=== PATIENT | female | born 1955 | race Caucasian/White ===

== ENCOUNTER 2022-12-04 10:06 | Observation (INO) ==
--- NOTE | 2022-11-18 13:47 | PAT Medication Instructions ---
Medication Instructions Date of Service November 18, 2022 Home Medications ascorbic acid (vitamin C) 1,000 mg tablet (Vitamin C) 1 g PO HS cholecalciferol (vitamin D3) 25 mcg (1,000 unit) tablet (Vitamin D3) 25 mcg PO HS ibuprofen 800 mg tablet 800 mg PO BID levothyroxine 150 mcg capsule 150 mcg PO QAM lisinopril 20 mg tablet 40 mg PO QAM affjnqts-dfi-mdkr-FA-Ca carb-vit K 18 mg iron-400 mcg-500 mg tablet (One-A-Day Womens Formula) 1 tab PO HS sertraline 25 mg tablet 25 mg PO HS simvastatin 20 mg tablet 20 mg PO QPM solifenacin 10 mg tablet 10 mg PO QAM ASK your surgeon for instructions ibuprofen 800 mg tablet 800 mg PO BID DO NOT take the morning of surgery lisinopril 20 mg tablet 40 mg PO QAM solifenacin 10 mg tablet 10 mg PO QAM Take morning of surgery With a small sip of water, OTHERWISE NOTHING TO EAT OR DRINK AFTER MIDNIGHT: levothyroxine 150 mcg capsule 150 mcg PO QAM Take evening before surgery ascorbic acid (vitamin C) 1,000 mg tablet (Vitamin C) 1 g PO HS cholecalciferol (vitamin D3) 25 mcg (1,000 unit) tablet (Vitamin D3) 25 mcg PO HS zovivtww-vfe-uqee-FA-Ca carb-vit K 18 mg iron-400 mcg-500 mg tablet (One-A-Day Womens Formula) 1 tab PO HS sertraline 25 mg tablet 25 mg PO HS simvastatin 20 mg tablet 20 mg PO QPM Other Notes If you have any questions please call us at [phone] or [phone] or [phone] or [phone]
--- NOTE | 2022-11-19 09:44 | Anesthesiology Consultation ---
Date of Service November 19, 2022 Assessment & Plan (1) Encounter for pre-operative examination: - bladder stimulator: nonfunctional x 10 yrs. - Outpatient joint assessment: Patient is currently scheduled for inpatient pathway. If re-evaluated pending system levels during current pandemic/surgeon requests outpatient pathway, patient is not acceptable candidate for outpatient joint program from anesthesia standpoint. - Case discussed with Dr. Wheeler who advised nothing additional needed from his standpoint, agreed pt not acceptable for outpatient joint. Chart Review Chart Review: Acceptable Risk for Surgery and Patient seen in Pre Admission Testing Teaching & Discussion Pre-Anesthesia Teaching/Discussion Notes: Instructed NPO after midnight before surgery, except medications with 15 cc of water. Medication instructions provided according to the PAT guidelines. History Surgery Operation Date: 12/04/22 11:00 Proposed Procedures p Right Total Knee Arthroplasty - Weston Bazan MD Height/Weight Height: 5 ft 6 in Weight: 127.3 kg Allergies Allergy/AdvReac Type Severity Reaction Status Date / Time nickel Allergy Mild Rash Verified 11/14/22 11:18 codeine AdvReac Intermediate Migraine Verified 11/14/22 11:18 Medications Home Medications Medication Instructions Recorded Confirmed Last Taken ascorbic acid (vitamin C) 1,000 mg 1 g PO HS 11/14/22 11/14/22 Unknown tablet (Vitamin C) cholecalciferol (vitamin D3) 25 25 mcg PO HS 11/14/22 11/14/22 Unknown mcg (1,000 unit) tablet (Vitamin D3) ibuprofen 800 mg tablet 800 mg PO BID 11/14/22 11/14/22 Unknown levothyroxine 150 mcg capsule 150 mcg PO QAM 11/14/22 11/14/22 Unknown lisinopril 20 mg tablet 40 mg PO QAM 11/14/22 11/14/22 Unknown yxnsnbml-vjj-sbdy-FA-Ca carb-vit K 1 tab PO HS 11/14/22 11/14/22 Unknown 18 mg iron-400 mcg-500 mg tablet (One-A-Day Womens Formula) sertraline 25 mg tablet 25 mg PO HS 11/14/22 11/14/22 Unknown simvastatin 20 mg tablet 20 mg PO QPM 11/14/22 11/14/22 Unknown solifenacin 10 mg tablet 10 mg PO QAM 11/14/22 11/14/22 Unknown calcium carb-vitamin D3 ER 600 mg tab PO QPM 11/19/22 Unknown (1,500 mg)-500 unit tablet,ER 24 hr pantoprazole 40 mg tablet,delayed 40 mg PO QAM 11/19/22 11/19/22 Unknown release Additional Notes: Pt reported also taking pantoprazole QAM and calcium QPM. She was advised to continue pantoprazole am day of surgery and can take calcium the evening before surgery. This was also written on provided medication instructions. She verbalized full understanding and agreement, denied questions, concerns or additional medications. Past Medical History Medical History (Updated 11/19/22 @ 10:00 by Hannah Drake PA-C) Depression GERD (gastroesophageal reflux disease) controlled, stable per pt History of breast cancer diagnosed 5yrs ago on left breast--surgery-no limb restriction per pt History of COVID-19 diagnosed 02/2022--mild symptoms, no symptoms now History of kidney stones History of radioactive iodine thyroid ablation Hyperlipidemia Hypertension controlled, stable per pt Hypothyroidism Incontinence urinary Morbid obesity with BMI of 45.0-49.9, adult Overactive bladder bladder stimulator in place but nonfunctional x 10 yrs per pt Sleep apnea CPAP-compliant Patient denies h/o stroke, seizures, heart attack, heart failure, DM, blood clots or blood transfusions. Exercise / Class Metabolic Activity III < 4 Walking/Shop/Light housework (denies chest discomfort or shortness of breath with usual activities) Past Family History Family History Other No family history of adverse response to anesthesia Past Surgical History Surgical History History of arthroscopy of right knee History of bilateral tubal ligation History of bronchoscopy 40yrs ago--had viral pneumonia History of section History of left breast biopsy malignant History of lithotripsy History of lumpectomy of left breast with lymph node removal--per pt NO limb restrictions History of tooth extraction all teeth removed Past Anesthesia History No Hx of Anesthesia Complications and No Family Hx of Anesthesia Complications History of PONV No Hx of Motion Sickness and History of PONV (denies needing scop patch) Social History Smoking Status: Never smoker Do You Dip or Chew Tobacco: No Hx Alcohol Use: Yes alcohol intake frequency: holidays/special occasions only Hx Substance Use: No substance use type: does not use Review of Systems Patient denies chest pain, shortness of breath, dyspnea on exertion, fever, chills, cough, wheezing, or palpitations. Physical Exam Vital Signs Vitals BP 116/74 P 68 TEMP 98 SP02 96% on RA RESP 17 Physical Full cervical extension range of motion without pain TMD 3.5 finger breadths Mallampati Score 2 Dentition: edentulous, full upper and lower dentures Lungs: normal respiratory effort. Clear throughout to auscultation, no adven titious breath sounds Cardiac: regular rate and rhythm, no murmurs noted Carotid arteries: negative bruit bilat Lab Results Anesthesia Preop Results Results Anesthesia Widget: WBC 5.00 K/ul (4.8-10.8) 11/19/22 Hgb 12.1 g/dl (12.0-16.0) 11/19/22 Hct 37.3 % (37.0-47.0) 11/19/22 Plt 196 K/uL (130-400) 11/19/22 Na 138 mmol/L (136-145) 11/19/22 K 4.0 mmol/L (3.5-5.1) 11/19/22 Cl 110 mmol/L (98-107) H 11/19/22 CO2 26 mmol/L (21-32) 11/19/22 BUN 23 mg/dl (6-23) 11/19/22 Creat 0.68 mg/dl (0.6-1.2) 11/19/22 Glucose Level 81 mg/dl (70-99(Fasting)) 11/19/22 PT 10.6 Seconds (9.0-12.0) 11/19/22 PTT 27.3 Seconds (21.0-31.0) 11/19/22 INR 1.0 (0.9-1.1) 11/19/22 Blood Type A Negative 11/19/22 Antibody Screen NEGATIVE 11/19/22 Testing Electrocardiogram Date: 11/19/22 Sinus rhythm with 1st degree AV block, rate 62 bpm Chest X-Ray Date: 11/19/22 No lines and tubes are seen. Cardiomegaly is noted. The lungs are clear. No evidence of pleural effusion or pneumothorax. IMPRESSION: No acute chest disease. COVID-19 Risk Screen Screening Information COVID-19 Screen Date: 11/19/22 Exposure 21 Days Family/Household +COVID Last 21 Days: No Exposure 10 Days Any COVID Exposure Last 10 Days: No Symptoms Last 10 Days Experienced COVID Sx Last 10 Days: No + COVID 0-90 Days COVID + in Last 0-90 Days: No
[~2022-12-04 10:06] MED LIST: ACETAMINOPHEN 500 MG TAB PO SCH; BUPIVACAINE 0.5 % 5 MG/1 ML PF 10ML VIAL ONE; BUPIVACAINE LIPOSOME/PF 266 MG, BUPIVACAINE/EPINEPHRINE 50 ML, SODIUM CHLORIDE 0.9% PF ... INFIL SCH; CeleBREX 200 MG CAP PO SCH; GABAPENTIN 300 MG CAP PO SCH; LR 500ML BOLUS, THEN 15ML/HR IV SCH; LR 60ML/HR IV SCH; METOCLOPRAMIDE HCL 10 MG TABLET PO SCH; ROPIVACAINE 0.5% 5 MG/ML 30 ML VIAL ONE; Scopolamine 1 MG TDSY TD SCH; TRANEXAMIC ACID 1,000 MG **IV Intra-op IV SCH; ceFAZolin 2000MG 2,000 MG/15 ML SYR IV SCH; dexAMETHasone**PF** 10 MG/ML VIAL IV SCH
--- NOTE | 2022-12-04 10:19 | History & Physical Bridge Note ---
Date of Service December 04, 2022 History & Physical Bridge Note I have examined the patient, reviewed the History & Physical and in the interval since the performance of the History & Physical I have noted the following changes of clinical significance: no changes noted
[2022-12-04] MEDS ORDERED: BUPIVACAINE/EPINEPHRINE 0.25% 1:200,000 30 ML VIAL ONE (12:09)
[2022-12-04] MEDS ORDERED: SODIUM CHLORIDE 0.9% PF 50 ML VIAL ONE (12:09)
[2022-12-04] MEDS ORDERED: BUPIVACAINE LIPOSOME 1.3% 266 MG/20 ML VIAL ONE (12:10)
[2022-12-04] MEDS ORDERED: MIDAZOLAM HCL 1 MG/ML 2ML VIAL ONE (12:16)
[2022-12-04] MEDS ORDERED: LIDOCAINE 2% MPF LOCAL 5 ML VIAL ONE (13:29)
[2022-12-04] MEDS ORDERED: DEXAMETHASONE SOD INJ 4 MG/ML VIAL ONE (13:29)
[2022-12-04] MEDS ORDERED: PROPOFOL IV EMULSION 10 MG/ML 20 ML VIAL IV ONE ×3 (13:29→13:42)
[2022-12-04] MEDS ORDERED: ONDANSETRON INJ 2 MG/ML 2 ML VIAL ONE (13:29)
[2022-12-04] MEDS ORDERED: ROPIVACAINE 0.5% 5 MG/ML 30 ML VIAL ONE (13:52)
[2022-12-04] MEDS ORDERED: BUPIVACAINE 0.5 % 5 MG/1 ML PF 10ML VIAL ONE (14:00)
--- NOTE | 2022-12-04 14:43 | Operative Report ---
PG Post Operative Report Pre & Post Diagnosis Operation Date: 12/04/22 12:30 Pre-Op Diagnosis: Right Knee Degenerative Joint Disease Post-Op Diagnosis: Right Knee Degenerative Joint Disease I identified the patient and participated in the time-out.: Yes Procedure Operation Date: 12/04/22 12:30 Actual Procedures p Right Total Knee Arthroplasty(Right) - Weston Bazan MD Surgeon Weston Bazan MD [employer] Hussain Beard PA-C Estimated Blood Loss 10 Findings Consistent with Post-Op Diagnosis Operative findings were advanced right knee tricompartment DJD. She had extensive grade 4 dtqu-il-daby disease of the all 3 compartments. She had osteophytes in all 3 compartments. Chronic ACL deficiency. Moderate-sized joint effusion. Specimens Right knee sent for pathology Anesthesia Type Spinal MAC Complications none Disposition Accompanied Patient To Recovery: No Indications Patient is 67-year-old female has had a long history of bilateral knee pain discomfort describes gotten worse over time patient been to extensive conservative treatment which became less successful over time. X-rays showed advanced bilateral knee DJD. She elected proceed with right total knee arthroplasty. Patient does have an apparent nickel allergy so we use a [employer] zirconium journey 2 total knee arthroplasty system. Description of Procedure Operative implants consist of: 1. [employer] journey 2 size 6 right posterior stabilized femoral component. 2. [employer] journey 2 size 5 right tibial tray. 3. 10 mm posterior stabilized polyethylene insert. 4. 32 x 9 all poly patella. The patient was taken the operating, identified, placed on the operating table supine position protectors were properly padded. IV antibiotics tried by anesthesia team. A spinal anesthetic and adductor canal block had provided holding area. Rodgers catheter was placed in sterile fashion the right Tetrick was then placed in the right lower extremities and prepped and draped in usual sterile fashion. The right leg was elevated exsanguinated with use of an Esmarch and tourniquet placed at 300 mmHg. An anterior approach of the right knee was then performed through a longitudinal incision centered over the patella. Sharp dissection was carried through subcutaneous tissue down the extensor mechanism. Medial parapatellar arthrotomy incision was made. Some subperiosteal dissection was carried out medially. The fat pad was dissected from Neath patella tendon. The lateral patellofemoral ligament was released. Patella subluxated laterally and the knee was flexed. The osteophytes taken off distal femur. The ACL was absent. The PCL was released from distal femur the tibia subluxated anteriorly. The external tibial alignment jig was then placed the interface the tibia and adjusted 8 mm medially. Proximal tibial cut was made remove about a millimeter or 2 of bone from most deficient aspect medial tibial plateau. The tibia was then sized to a size 5. Attention drawn the femur. The distal femur was entered with a sharp drop with intramedullary canal was suction. A right 5 degree valgus cutting guide was placed. Distal femoral cutting block was pinned in place. Distal femoral cut was made to take an additional 2 mm of bone off distal femur. The femur was then sized to a size 6. The AP cutting block was pinned parallel to the epicondylar axis which was 4 degrees of external rotation. The anterior cord 8, anterior chamfer, posterior cut, posterior chamfer, anterior chamfer cut was made. The knee was then flexed. The osteophytes taken off the posterior aspect of the femur. The remnants of the medial lateral menisci were excised. The trial femoral component was placed. The cutting guide for the trochlea device was placed in t he trochlea/intercondylar box was created. The trochlear component was placed. The tibial tray was then pinned in position in maximum external rotation. The drill and stem punch used to create the defect in proximal tibia for the tibial tray. I then trialed the knee and the 10 mm insert fit most appropriately. Attention drawn the patella. The patella was cleaned of all soft tissues. Patella thickness measured 25 mm in thickness was cut down to 15. Was sized to a size 32 patella. The lug holes were drilled for the 32 patella. The lateral osteophytes removed. Patella button was placed. Knee was taken through range of motion and the patella tracked nicely with no thumbs test. Attention drawn to placing permanent components. Trial components were removed. Bone plug was placed in the distal femur limit blood loss. Double batch Palacos G cement was mixed. A [employer]hew size 6 right posterior stabilized femoral component, size 5 tibial tray, 10 mm posterior stabilized polyethylene insert, and a 32 x 9 all Paller patella then cemented in place. Knee was brought out into full extension till cement hardened. Final cement check was then performed. The pericapsular tissues were injected with total 100 cc of combination of 20 cc of Exparel, 30 cc normal saline, 50 cc of quarter percent Marcaine with epinephrine. Patient did receive 1 g tranexamic acid. The tourniquet was then let down for final tourniquet time of 61 minutes. Hemostasis assured use electrocautery through the Vetrimec Closed with combination 1 PDS suture and 1 Vicryl suture in a [id number] f ashion. Extensor mechanism checked found to be intact with subcutaneous tissue then closed with 2 Dexon suture in a buried erupted fashion skin was closed skin emily. Leg was then cleaned and dried and a sterile dressing with Xeroform, 4 fours, sterile cast padding, Francisco bandage were applied. Patient then transferred to the recovery room in stable condition. Patient tolerated procedure well and there were no complications. Hussain Beard, my physician call center assistant, was present for the entire procedure. His assistance was essential and required for appropriate patient positioning, prepping and draping, surgical exposure, performing the technical details of the operation, placement the implants, closure of the wound, and placement of the sterile bandage. I attest to the content of the Intraoperative Record and any orders documented therein. Any exceptions are noted below.
--- NOTE | 2022-12-04 15:02 | Anesthesiology Progress Note ---
Date of Service December 04, 2022 Anesthesia Post Procedure Vital Signs Vital Signs: Temp Pulse Pulse Resp BP Pulse Ox O2 Del Method 12/04/22 14:50 68 18 122/66 100 Room Air 12/04/22 14:40 36 C L 74 16 114/84 100 Oxymask 12/04/22 10:49 37.1 C 76 20 135/96 93 Room Air O2 Flow Rate 12/04/22 14:50 12/04/22 14:40 6 12/04/22 10:49 Transfer of Care Handoff Completed per policy Notes Mental Status: alert / awake / arousable and participated in evaluation Nausea / Vomiting: adequately controlled Pain: adequately controlled Airway Patency, RR, SpO2: stable & adequate BP & HR: stable & adequate Hydration State: stable & adequate Neuraxial Anesthesia: was administered Anesthetic Complications: no major complications apparent and Pt Satisfied with anesthetic care
--- NOTE | 2022-12-04 15:09 | XRay Report ---
TWO VIEWS RIGHT KNEE CLINICAL HISTORY: Postoperative examination. FINDINGS: AP and crosstable lateral portable views of the right knee are obtained. A right knee arthr oplasty is in near anatomic alignment. There has been undersurface remodeling of the patella. No acut e fracture is seen. There are expected postoperative changes around the knee including skin clips, so ft tissue edema, and subcutaneous gas. IMPRESSION: Expected postoperative changes status post right knee arthroplasty. No acute fracture is seen. ACT 112: Negative or not required by law. Electronically signed by: Angel De La Rosa M.D. 12/04/2022 3:07 PM
[2022-12-04] MEDS ORDERED: HYDROmorphone INJ 0.5 MG/0.5 ML SYR IV PRN (15:35)
[2022-12-04] MEDS ORDERED: bisacodyL 10 MG SUPP PR PRN (15:35)
[2022-12-04] MEDS ORDERED: MAGNESIUM HYDROXIDE SUSP 30 ML UDC PO PRN (15:35)
[2022-12-04] MEDS ORDERED: NALOXONE HCL 0.4 MG/1 ML VIAL/CARP IV PRN (15:35)
[2022-12-04] MEDS ORDERED: ONDANSETRON INJ 2 MG/ML 2 ML VIAL IV PRN (15:35)
[2022-12-04] MEDS ORDERED: ALUMINUM/MAGNESIUM SUSP 30 ML UDC PO PRN (15:35)
[2022-12-04] MEDS ORDERED: HYDROmorphone HCL 2 MG TAB PO PRN (15:35)
[2022-12-04] MEDS ORDERED: METOCLOPRAMIDE HCL INJ 5 MG/ML 2 ML VIAL IV PRN (15:35)
[2022-12-04] MEDS: ASCORBIC ACID 500 MG TAB PO SCH (16:51)
[2022-12-04] MEDS: Scopolamine CHECK PATCH PLACEMENT SCH ×2 (16:51→23:51)
[2022-12-04] MEDS: SODIUM CHLORIDE 0.9% 1000ML 1,000 ML IV SCH (16:51)
[2022-12-04] MEDS: KETOROLAC TROMETHAMINE 15 MG/ML VIAL IV SCH ×2 (16:52→21:24)
[2022-12-04] MEDS ORDERED: TRANEXAMIC ACID / 0.7% NACL 1,000 MG/100 ML BAG IV SCH (20:45)
[2022-12-04] MEDS ORDERED: SIMVASTATIN 20 MG TAB PO SCH (21:00)
[2022-12-04] MEDS ORDERED: MULTIVITAMIN TAB PO SCH (21:00)
[2022-12-04] MEDS ORDERED: CHOLECALCIFEROL 1,000 UNITS 25 MCG TAB PO SCH (21:00)
[2022-12-04] MEDS ORDERED: NON-FORMULARY MEDICATION (Ascorbic Acid (Vitamin C) [Vitamin C] 1,000 mg Tablet) PO SCH (21:00)
[2022-12-04] MEDS ORDERED: SERTRALINE HCL 50 MG TABLET PO SCH (21:00)
[2022-12-04] MEDS ORDERED: SENNA 8.6 MG TAB PO SCH (21:00)
[2022-12-04] MEDS: ceFAZolin 2000MG 2,000 MG/15 ML SYR IV SCH (21:19)
[2022-12-04] MEDS: ACETAMINOPHEN 500 MG TAB PO SCH (21:21)
[2022-12-04] MEDS: ASPIRIN 81 MG ECTAB PO SCH (21:21)
[2022-12-04] MEDS: DOCUSATE SODIUM 100 MG CAP PO SCH (21:22)
[2022-12-04] MEDS: SENNA 8.6 MG TAB PO SCH (21:23)
[2022-12-05] MEDS: SODIUM CHLORIDE 0.9% 1000ML 1,000 ML IV SCH (01:20)
[2022-12-05] MEDS: KETOROLAC TROMETHAMINE 15 MG/ML VIAL IV SCH ×2 (04:13→09:22)
[2022-12-05] MEDS: ceFAZolin 2000MG 2,000 MG/15 ML SYR IV SCH (04:14)
[2022-12-05] MEDS ORDERED: LEVOTHYROXINE SODIUM 150 MCG TABLET PO SCH (06:30)
[2022-12-05 07:40] LABS: Hemoglobin 10.7 g/dl (12.0-16.0); Mean Corpuscular Hemoglobin 29.6 pg (25.0-34.0); Mean Corpuscular Hgb Conc 33.4 g/dL (32.0-36.0); Mean Corpuscular Volume 88.4 fL (80.0-100.0); Mean Platelet Volume 10.4 fL (9.4-12.4); Platelet Count 182 K/uL (130-400); RDW Coefficient of Variation 13.2 % (11.5-14.5); RDW Standard Deviation 42.8 fL (36.4-46.3); Red Blood Count 3.62 M/uL (4.20-5.40); White Blood Count 14.84 K/ul (4.8-10.8)
[2022-12-05 07:57] LABS: BUN Creatinine Ratio 33.8 (10-20); Calcium 8.7 mg/dl (8.6-10.3); Creatinine Clr Calc Pharmacy 113.6 ml/min; Est GFR (African American) 106.5 ml/min; Est GFR (Non-African American) 91.9 ml/min; Potassium 4.2 mmol/L (3.5-5.1)
[2022-12-05] MEDS ORDERED: dexAMETHasone 4 MG TAB PO SCH (08:00)
[2022-12-05] MEDS ORDERED: MULTIVITAMIN TAB PO SCH (09:00)
[2022-12-05] MEDS ORDERED: lisinopril 40 MG TAB PO SCH (09:00)
[2022-12-05] MEDS ORDERED: PANTOprazole 40 MG TAB PO SCH (09:00)
[2022-12-05] MEDS: ASCORBIC ACID 500 MG TAB PO SCH (09:19)
[2022-12-05] MEDS: ACETAMINOPHEN 500 MG TAB PO SCH (09:19)
[2022-12-05] MEDS: DOCUSATE SODIUM 100 MG CAP PO SCH (09:20)
[2022-12-05] MEDS: ASPIRIN 81 MG ECTAB PO SCH (09:20)
[2022-12-05] MEDS: SENNA 8.6 MG TAB PO SCH (09:21)
[2022-12-05] MEDS: Scopolamine CHECK PATCH PLACEMENT SCH (09:21)
--- NOTE | 2022-12-05 11:36 | Progress Notes ---
DATE OF SERVICE: 12/05/2022. SUBJECTIVE: A 67-year-old female, now postoperative day 1 from a right knee replacement. She is doi ng well. Really not having much pain. Had a good night. She has been up and walking around with a walker. She is hoping to go home. OBJECTIVE: VITAL SIGNS: Temperature 36.7. Vital signs are stable. GENERAL: Shows a pleasant middle-aged female. She is sitting up in her bedside chair, looks comfort able. LUNGS: Clear to auscultation. HEART: Regular rate and rhythm. ABDOMEN: Soft, nontender, nondistended. EXTREMITIES: Grossly neurovascularly intact except as follows. Examination of the right leg reveals the dressing to be clean, dry and intact. She can do a good str aight leg raise. She easily bends her knee to 90 degrees. She can dorsiflex and plantarflex her kathya t appropriately. She is neurologically intact. LABORATORY DATA: Hemoglobin 10.7. Hematocrit 32.0. Electrolytes are stable. ASSESSMENT: A 67-year-old female, postoperative day 1 from a right knee replacement, doing remarkabl y well. Pain is controlled. She is getting around well. She is neurologically intact. She is atka ng to go home. PLAN: 1. DVT prophylaxis includes thigh-high TEDs, SCDs, and aspirin twice a day. 2. PT/OT, weightbear as tolerated. Right total knee protocol. 3. Pain control, doing okay with current pain regimen. 4. Disposition: Plan to discharge to home. She is going to do outpatient therapy. Job ID: [id number]
--- NOTE | 2022-12-07 15:28 | Discharge Summary ---
Date of Service December 07, 2022 Discharge Data Procedures Performed Operation Date: 12/04/22 12:30 Actual Procedures p Right Total Knee Arthroplasty(Right) - Weston Bazan MD Hospital Course (1) Status post total right knee replacement: This is a 67 year old patient admitted on 12/04/22 and underwent total knee arthroplasty. She tolerated the procedure well and there were no complications. Transferred to the PACU post op and later to the orthopedic floor for further care. She was given ancef for antibiotic prophylaxis. She was also given WIL stockings, SCDs, and aspirin for DVT prophylaxis. Hemoglobin, hematocrit, and vital signs were monitored during her hospital stay and remained stable. Did not require any blood transfusions. There were no complications during her hospital stay. By post op day #1 the patient was tolerating a regular diet, pain was reasonably controlled with oral pain medicine, and she was participating in physical therapy. On post op day #1 the patient was discharged home. She was given printed discharge instructions including prescriptions for extra strength tylenol, aspirin, cefadroxil, ketorolac, zofran, senokot and hydromorphone. Continue physical therapy, weight bearing as tolerated. Continue WIL stockings. Follow up approximately 2 weeks post op or sooner if there are problems or concerns. Coding Level of Care Code None Diagnoses Status post total right knee replacement Z96.651
== END 2022-12-05 11:55 | disposition home or self-care (01) ==
LOC: ASU 10:06 → 3E 10:06